=== PATIENT | male | born 1970 | race Caucasian/White ===

== ENCOUNTER 2016-11-18 06:38 | Emergency (ER) | payer BC ==
[~2016-11-18] VITALS: Ht 182.9 cm; Wt 104.3 kg
[2016-11-18 07:01] VITALS: BP 138/89
--- NOTE | 2016-11-18 07:12 | PHYS DOC ---
Past Medical History Past Medical History: No Pertinent History Past Surgical History: Tonsillectomy, Other Additional Past Surgical Histo: R. ARM Alcohol Use: Occasionally Drug Use: None Adult General Chief Complaint Chief Complaint: SORE THROAT HPI HPI Patient is a 46 year old male with no significant medical history who presents today with a sore throat for 4 days. Patient denies any fever coughing or congestion. 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 Review of Systems Review of Systems Constitutional: See history of present illness Eyes: Denies change in visual acuity, redness, or eye pain [] HENT: sore throat [] Respiratory: See history of present illness Cardiovascular: No additional information not addressed in HPI [] GI: Denies abdominal pain, nausea, vomiting, bloody stools or diarrhea [] : Denies dysuria or hematuria [] Musculoskeletal: Denies back pain or joint pain [] Integument: Denies rash or skin lesions [] Neurologic: Denies headache, focal weakness or sensory changes [] Endocrine: Denies polyuria or polydipsia [] Allergies Allergies Allergies Coded Allergies Type Severity Reaction Last Updated Verified No Known Drug Allergies 11/18/16 No Physical Exam Physical Exam Constitutional: Well developed, well nourished, no acute distress, non-toxic appearance. [] HENT: Normocephalic, atraumatic, bilateral external ears normal, oropharynx moist, no oral exudates, nose normal. [] Posterior pharynx with mild erythema. No exudate. Eyes: PERRLA, EOMI, conjunctiva normal, no discharge. [] Neck: Normal range of motion, no tenderness, supple, no stridor. [] Cardiovascular:Heart rate regular rhythm, no murmur [] Lungs & Thorax: Bilateral breath sounds clear to auscultation [] Abdomen: Bowel sounds normal, soft, no tenderness, no masses, no pulsatile masses. [] Skin: Warm, dry, no erythema, no rash. [] Back: No tenderness, no CVA tenderness. [] Extremities: No tenderness, no cyanosis, no clubbing, ROM intact, no edema. [] Neurologic: Alert and oriented X 3, normal motor function, normal sensory function, no focal deficits noted. [] Psychologic: Affect normal, judgement normal, mood normal. [] Current Patient Data Vital Signs Vital Signs Date Time Temp Pulse Resp B/P Pulse Ox O2 Delivery O2 Flow Rate FiO2 11/18/16 07:01 97.9 68 16 96 Room Air 97.9 EKG EKG [] Radiology/Procedures Radiology/Procedures [] Course & Med Decision Making Course & Med Decision Making Pertinent Labs and Imaging studies reviewed. (See chart for details) Patient is in the ED with sore throat for 4 days. Positive rapid strep. Patient to be discharged with amoxicillin for 10 days. Tylenol or Motrin recommended for pain or fever. Saltwater gargles recommended as well. Follow-up with PCP 1- 2 weeks. Addie Disclaimer Dragon Disclaimer This electronic medical record was generated, in whole or in part, using a voice recognition dictation system. Departure Departure Impression: Primary Impression: Streptococcal pharyngitis Disposition: 01 HOME, SELF-CARE Condition: STABLE Patient Instructions: Strep Throat Additional Instructions: You were seen for strep infection. Please ensure you complete your antibiotics. Take Tylenol every 4 hours and Motrin every 6 hours as needed for pain or fever. You can also use saltwater gargles, follow up with your doctor in 7 days as needed. Scripts Lidocaine Hcl (Lidocaine Hcl Viscous)20 Mg/1 Ml Solution5 Ml PO TID #100 ML Prov:REN PLUMMER APRN 11/18/16 Amoxicillin 875 Mg Tablet1 Tab PO BID #20 TAB Prov:REN PLUMMER APRN 11/18/16 REN PLUMMER APRN Nov 18, 2016 07:12
[2016-11-18] MEDS ORDERED: AMOX875T PO (07:43)
[2016-11-18] MEDS ORDERED: LIDO20SO PO (07:43)
[2016-11-18 10:54] LABS: NEGATIVE OBC STREP NEG; POSITIVE OBC STREP POS
== END 2016-11-18 08:05 | disposition home or self-care (01) ==
LOC: ER 06:38
DX: J02.0 Streptococcal pharyngitis (principal)
CPT/HCPCS: 87880; 99283